=== PATIENT | male | born 1970 | race Caucasian/White ===

== ENCOUNTER 2016-06-25 15:07 | Emergency (ER) | payer BC ==
[~2016-06-25] VITALS: Ht 180.3 cm; Wt 78.8 kg
[2016-06-25] MEDS ORDERED: MOTRIN800 MG PO (16:16)
[2016-06-25] MEDS ORDERED: NORCO 5/3251 TABLET PO (16:16)
[2016-06-25 16:42] VITALS: BP 129/84
== END 2016-06-25 16:53 | disposition home or self-care (01) ==
LOC: EME 15:07
DX: N48.89 Other specified disorders of penis (principal); R20.0 Anesthesia of skin; Z87.891 Personal history of nicotine dependence
CPT/HCPCS: 99281; 99284